=== PATIENT | female | born 1955 | race Two or more races ===

== ENCOUNTER 2016-05-17 17:20 | Emergency (ER) | payer BC, MEDICAID ==
[~2016-05-17] VITALS: Ht 170.2 cm; Wt 90.7 kg
[2016-05-17 17:25] VITALS: BP 156/102
[2016-05-17] MEDS ORDERED: SODIUM CHLORIDE 0.9% 500 ML IVB ONE (17:35)
[2016-05-17 17:56] LABS: Basophils # (auto) 0 uL; Basophils % (auto) 0.1 % (0.0-2.0); DEFINITIVE VIEW TRANSMISSION; Eosinophils # (auto) 0.1 uL; Eosinophils % (auto) 1.7 % (0.0-7.0); Hematocrit 35.3 % (36.0-46.0); Hemoglobin 10.5 g/dL (12.2-16.2); Lymphocytes # (auto) 0.5 uL; Lymphocytes % (auto) 9.4 % (10.0-50.0); Mean Corpuscular Hemoglobin 24.8 pg (28.0-32.0); Mean Corpuscular Hgb Conc. 29.8 g/dL (32.0-36.0); Mean Corpuscular Volume 83.4 fL (80.0-100.0); Mean Platelet Volume 10.3 fL (7.4-10.4); Monocytes # (auto) 0.5 uL; Monocytes % (auto) 9.9 % (0.0-12.0); Neutrophils % (auto) 78.9 % (37.0-80.0); Platelet Count (auto) 213 10^3/uL (140-450); Red Cell Distribution Width 18.9 % (11.6-16.0); SUSPECT VIEW TRANSMISSION; White Blood Cell 5.1 10^3/uL (4.4-10.8)
[2016-05-17 18:12] LABS: Albumin 4.1 g/dL (3.4-5.0); BUN/Creatinine Ratio 5.1; Potassium 3.2 mmol/L (3.5-5.1)
[2016-05-17 18:14] LABS: Bilirubin, Total 0.9 mg/dL (0.2-1.0); Total Protein 7.2 g/dL (6.4-8.2)
[2016-05-17 18:32] LABS: Magnesium 2.2 mg/dL (1.6-2.6)
== END 2016-05-17 17:31 | disposition left against medical advice (07) ==
LOC: EDBD 17:20 → EDUNIT# 17:20 → ER 17:28
DX: R41.82 Altered mental status, unspecified (principal); E11.649 Type 2 diabetes mellitus with hypoglycemia without coma; G93.41 Metabolic encephalopathy; I12.0 Hypertensive chronic kidney disease with stage 5 chronic kidney disease or end stage renal disease; N18.6 End stage renal disease; Z53.29 Procedure and treatment not carried out because of patient's decision for other reasons
CPT/HCPCS: 36415; 80053; 80320; 83735; 84443; 84484; 85025; 94761